=== PATIENT | male | born 1980 ===

== ENCOUNTER 2021-12-24 10:22 | Outpatient (CLI) | payer OTHER | END 2021-12-24 10:30 | disposition home or self-care (01) | LOC: RAD 10:22 | PROVIDERS: ATTEND Internal Medicine | DX: B00.0 Eczema herpeticum (principal); E03.9 Hypothyroidism, unspecified; I10 Essential (primary) hypertension; L13.0 Dermatitis herpetiformis; B02.23 Postherpetic polyneuropathy ==